=== PATIENT | male | born 1980 | race Caucasian/White ===

== ENCOUNTER 2019-02-21 11:00 | Outpatient (CLI) | payer BC ==
[~2019-02-21] VITALS: Ht 190.5 cm; Wt 115.2 kg
[~2019-02-21 11:00] MED LIST: ALPR.5T; FEXO180T; TMSL.4C
[2019-02-21] MEDS ORDERED: CETI10TA20 PO (15:08)
[2019-02-21] MEDS ORDERED: ALPR0.5T7 PO (15:08)
[2019-02-22] MEDS ORDERED: NITR-65 PO (13:11)
[2019-02-22] MEDS ORDERED: HYDR-3870 PO (13:11)
[2019-02-22] MEDS ORDERED: TAMS0.4C98 PO (13:11)
== END 2019-02-21 15:21 | disposition home or self-care (01) ==
LOC: PREOP 11:00
PROVIDERS: ATTEND Urology
DX: Z01.818 Encounter for other preprocedural examination (principal)

== ENCOUNTER 2019-02-22 07:50 | Day surgery (SDC) | payer BC ==
[2019-02-22] VITALS (11 sets, daily range): BP systolic 122–140; BP diastolic 83–100
[~2019-02-22] VITALS: Ht 190.5 cm; Wt 115.2 kg
[~2019-02-22 07:50] MED LIST changes: +ALPR0.5T7 PO; +CETI10TA20 PO
--- OUTSIDE RECORDS SUMMARY | 2019-02-22 07:52 | XMS REPORT | Clinical Summary ---
Author Author Admin, BEAN Organization [facility] Address Unknown Phone Unavailable Allergies, Adverse Reactions, Alerts Allergy Name Reaction Description Start Date Severity Status Provider Allergies Unknown Conditions or Problems Problem Name Problem Code Onset Date Status Entry Date Provider Comment Standard Description Annotate Erythrocytosis 289.0 Active Nany Urena MA Polycythemia, secondary Medication List Medication Instructions Start Date Stop Date Generic Name NDC Status Provider Patient Instruction Drug Treatment Unknown - unknown Diagnostic Results Date Name Value Unit Range Description Lab Report: CBC W/DIFF - Hematology leukocyte count, blood 8.2 10^3/MM^3 10*3/mm3 4.6-10.2 neutrophils as percent of blood leukocytes 39.7 % 42.2-75.2 monocytes as percent of blood leukocytes 9.5 % 1.7-9.3 lymphocytes as percent of blood leukocytes 36.9 % 20.5-51.1 erythrocyte (RBC) count 5.92 10^6/MM^3 10*6/mm3 4.50-6.50 hemoglobin, blood 16.5 g/dL 14.0-18.0 hematocrit, blood 51.1 % 40.0-54.0 mean corpuscular volume, RBC 86 fL 80-97 mean corpuscular hemoglobin, RBC 27.9 pg 27.0-31.2 mean corpuscular hemoglobin concentration, RBC 32.3 G/DL % 31.8- 35.4 red blood cell distribution width 11.6 % 11.6-14.8 platelet count 299 10^3/MM^3 10*3/mm3 142-424
--- OUTSIDE RECORDS SUMMARY | 2019-02-22 07:52 | XMS REPORT | Clinical Summary ---
Author Author Admin, [facility] Organization [facility] Address Unknown Phone Unavailable Allergies, Adverse Reactions, [...]
--- OUTSIDE RECORDS SUMMARY | 2019-02-22 07:52 | XMS REPORT | Clinical Summary ---
Author Author Admin, BEAN Organization [employer] [facility] Address Unknown Phone Unavailable Allergies, Adverse Reactions, [...]
--- OUTSIDE RECORDS SUMMARY | 2019-02-22 07:52 | XMS REPORT | Clinical Summary ---
Author Author Admin, BEAN Organization [facility] Address Unknown Phone Unavailable Allergies, Adverse [...]
--- OUTSIDE RECORDS SUMMARY | 2019-02-22 07:53 | XMS REPORT | Continuity of Care Document ---
Author Organization Unknown Address Unknown Allergies There is no data. Medications There is no data. Problems Date Dx Coded Attending Type Code Diagnosis Diagnosed By 01/17/2019 D75.1 Erythrocytosis Procedures There is no data. Results There is no data. Encounters ACCT No. Visit Date/Time Discharge Status Pt. Type Provider Facility Loc./Unit Complaint [id number] 02/03/2019 20:07:45 ACT Unknown
[2019-02-22] MEDS ORDERED: cefTRIAXone FOR IV USE 1,000 MG in WATER (STERILE) FOR INJECTION 10 ML IV ONE (08:15)
--- NOTE | 2019-02-22 08:20 | Progress Note-Pre Operative ---
Pre-Operative Progress Note H&P Reviewed The H&P was reviewed, patient examined and no changes noted. Date Seen by Provider: Feb 22, 2019 Time Seen by Provider: 08:19 Date H&P Reviewed: Feb 22, 2019 Time H&P Reviewed: 08:19 Pre-Operative Diagnosis: LT URETERAL STONE WILLIS BRYANT MD Feb 22, 2019 08:19
[2019-02-22] MEDS ORDERED: CATHETER FLUSH 10 ML SYR IV PRN (08:30)
--- NOTE | 2019-02-22 08:35 | Diagnostic Imaging Report ---
INDICATION: Left ureteral calculus. EXAMINATION: KUB at 8:17 AM. FINDINGS: There is a 5 mm stone projecting over the left proximal ureter. The bowel gas pattern is normal. IMPRESSION: 5 mm calculus in the left proximal ureter. Dictated by: Dictated on workstation # [id number]
[2019-02-22] MEDS: LACTATED RINGERS 1,000 ML IV PRN ×2 (08:55→11:30)
[2019-02-22] MEDS ORDERED: MIDAZOLAM 2 MG/2 ML (VERSED) VIAL ONE (10:39)
[2019-02-22] MEDS ORDERED: fentaNYL INJECTION 100 MCG/2 ML AMP ONE (10:39)
[2019-02-22] MEDS ORDERED: proPOfol 200 MG/20 ML (DIPRIVAN) VIAL IV ONE (11:13)
[2019-02-22] MEDS ORDERED: ONDANSETRON 4 MG/2 ML (SDV) Z0FRAN ONE (11:14)
[2019-02-22] MEDS ORDERED: KETOROLAC 30 MG/ML VIAL ONE (11:14)
[2019-02-22] MEDS ORDERED: FUROSEMIDE 40 MG/4 ML INJ (LASIX) ONE (11:14)
[2019-02-22] MEDS ORDERED: DEXAMETHASONE 10 MG/ML (DECADRON) 1 ML VIAL ONE (11:14)
--- NOTE | 2019-02-22 11:15 | Discharge Inst-Urology ---
Discharge Inst-Urology Discharge Medications New, Converted, or Re-newed RX: RX on Chart Patient Instructions/Follow Up Plan Please make appointment to been seen in office Tuesday 03/06. KUB prior to it KUB on way home Post ESWL instructions Increase oral fluids for 48 hours and then as needed. Diet and Activity as tolerated. If questions or concerns contact your physician Or seek help at emergency department. WILLIS BRYANT MD Feb 22, 2019 11:15
--- NOTE | 2019-02-22 11:17 | Progress Note-Post Operative ---
Post-Operative Progess Note Surgeon (s)/Roadway Technician (s) Surgeon WILLIS BRYANT MD Roadway Technician: NONE Pre-Operative Diagnosis LT PROXIMAL URETERAL STONE Post-Operative Diagnosis SAME Procedure & Operative Findings Date of Procedure 02/22/19 Procedure Performed/Findings LT ESWL Anesthesia Type GENERAL Estimated Blood Loss Estimated blood loss (mL): NONE Specimens/Packing Specimens Removed NONE Packing: NONE WILLIS BRYANT MD Feb 22, 2019 11:17
[2019-02-22] MEDS ORDERED: SEVOFLURANE (ULTANE) 15 ML INHAL SOLN ONE (11:40)
[2019-02-22] MEDS ORDERED: LIDOCAINE PF 2% 5 ML (XYLOCAINE) VIAL ONE (11:40)
[2019-02-22] MEDS ORDERED: NITR-65 PO (13:11)
[2019-02-22] MEDS ORDERED: HYDR-3870 PO (13:11)
[2019-02-22] MEDS ORDERED: TAMS0.4C98 PO (13:11)
--- NOTE | 2019-02-22 13:39 | Anesthesia-General Post-Op ---
General Patient Condition Mental Status/LOC: Same as Preop Cardiovascular: Satisfactory Nausea/Vomiting: Absent Respiratory: Satisfactory Pain: Controlled Complications: Absent Post Op Complications Complications None Follow Up Care/Instructions Patient Instructions None needed. Anesthesia/Patient Condition Patient Condition Patient is doing well, no complaints, stable vital signs, no apparent adverse anesthesia problems. No complications reported per nursing. ADE HARDEN CRNA Feb 22, 2019 13:39
--- NOTE | 2019-02-22 13:53 | NUR ---
HAS BEEN ALERT, NO COMPLAINTS OF PAIN OR NAUSEA, AND TAKING PO FLUIDS WELL THROUGHOUT RECOVERY. FAINT PINK CIRCULAR AREA LEFT MID TO LOWER ABD NOTED. VOIDING CLEAR, LIGHT PINK TO PINK TINGED URINE WITHOUT PROBLEM. URINE STRAINED WITH NO STONE PARTICLES OBTAINED. STATES HE IS READY FOR DISMISSAL.
--- NOTE | 2019-02-22 14:21 | Diagnostic Imaging Report ---
INDICATION: Nephrolithiasis. EXAMINATION: KUB at 1:22 PM. FINDINGS: No definite calculi are seen. A small calculus could be obscured by bowel gas. The pelvis is unremarkable. IMPRESSION: Negative abdomen. Dictated by: Dictated on workstation # [id number]
--- NOTE | 2019-02-22 15:48 | OPERATIVE REPORT ---
DATE OF SERVICE: 02/22/2019 PREOPERATIVE DIAGNOSIS: Left proximal ureteral stone. POSTOPERATIVE DIAGNOSIS: Left proximal ureteral stone. OPERATION PERFORMED: Left extracorporeal shock wave lithotripsy. SURGEON: Tobias Bryant MD ANESTHESIA: General. COMPLICATIONS. None. PROCEDURE IN DETAIL: Under satisfactory general anesthesia, the patient in supine position on the ESWL table, the left proximal ureteral stone was localized. Shocks were delivered at kV of 4, total of 3000 shocks completely fragmented the stone that was difficult to see. The patient received 40 mg of Lasix and 30 mg of Toradol IV at the end of the procedure. He tolerated the procedure and anesthesia well and was sent to recovery room in stable condition. Job ID: [id number] DocumentID: [id number] Dictated Date: 02/22/2019 11:25:30 Cow Rider Date: 02/22/2019 15:48:00 Dictated By: TOBIAS BRYANT MD
== END 2019-02-22 13:53 | disposition home or self-care (01) ==
LOC: SDC 07:50
PROVIDERS: ATTEND Urology
DX: N20.1 Calculus of ureter (principal); Z11.2 Encounter for screening for other bacterial diseases; F41.9 Anxiety disorder, unspecified; J30.2 Other seasonal allergic rhinitis; Z79.899 Other long term (current) drug therapy; E66.9 Obesity, unspecified; Z68.31 Body mass index [BMI] 31.0-31.9, adult
CPT/HCPCS: 74018; 87081

== ENCOUNTER 2019-03-06 16:00 | Outpatient (RCR) | payer BC ==
[2019-04-10] MEDS ORDERED: CEPH500T PO (09:04)
== END 2019-06-04 | disposition home or self-care (01) ==
LOC: LAB 16:00 → EDSTATUS 05-17 13:09
PROVIDERS: ATTEND Urology
DX: N20.0 Calculus of kidney (principal)
CPT/HCPCS: 88300

== ENCOUNTER → 2019-03-06 | Outpatient (CLI) | payer BC ==
[~2019-03-06] MED LIST changes: +HYDR-3870 PO; +NITR-65 PO; +TAMS0.4C98 PO
--- NOTE | 2019-03-06 15:33 | Diagnostic Imaging Report ---
INDICATION: Left ureteral calculus. Status post ESWL. COMPARISON: 02/22/2019. FINDINGS: Two supine radiographic views of the abdomen were obtained and again demonstrate 5 mm calculus projecting over the left psoas muscle. There may be minimal inferior migration since the previous exam dated 02/22/2019. No new extraosseous calcifications or radiopaque foreign bodies are seen. Small bowel loops are nondistended. Bony structures show no gross acute abnormalities. IMPRESSION: 1. Redemonstration of calculus within the left ureter as described above. Dictated by: Dictated on workstation # [id number]
== END ==
LOC: RAD 14:59
PROVIDERS: ATTEND Urology
DX: N20.1 Calculus of ureter (principal)
CPT/HCPCS: 74018

== ENCOUNTER 2019-04-10 06:32 | Emergency (ER) | payer BC ==
[~2019-04-10] VITALS: Ht 190.5 cm; Wt 131.1 kg
--- OUTSIDE RECORDS SUMMARY | 2019-04-10 06:38 | XMS REPORT | Continuity of Care Document ---
Author Organization Unknown Address Unknown Allergies Active Description Code Type Severity Reaction Onset Reported/Identified Relationship to Patient Clinical Status Yes iodine [id number] Drug Allergy Mild N/A 12/24/2009 Yes latex [id number] Drug Allergy Mild N/A 12/24/2009 Medications There is no data. Problems Date Dx Coded Attending Type Code Diagnosis Diagnosed By 01/17/2019 D75.1 Erythrocytosis 02/21/2019 WILLIS BRYANT MD Ot Z01.818 ENCOUNTER FOR OTHER PREPROCEDURAL EXAMIN 02/24/2019 WILLIS BRYANT MD Ot E66.9 OBESITY, UNSPECIFIED 02/24/2019 WILLIS BRYANT MD, Ot F41.9 ANXIETY DISORDER, UNSPECIFIED 02/24/2019 WILLIS BRYANT MD Ot J30.2 OTHER SEASONAL ALLERGIC RHINITIS 02/24/2019 WILLIS BRYANT MD, Ot N20.1 CALCULUS OF URETER 02/24/2019 WILLIS BRYANT MD, Ot Z11.2 ENCOUNTER FOR SCREENING FOR OTHER BACTER 02/24/2019 WILLIS BRYANT MD Ot Z68.31 BODY MASS INDEX (BMI) 31.0-31.9, ADULT 02/24/2019 WILLIS BRYANT MD, Ot Z79.899 OTHER [place] (CURRENT) DRUG THERAPY 03/09/2019 WILLIS BRYANT MD Ot N20.0 CALCULUS OF KIDNEY 03/30/2019 WILLIS BRYANT MD, Ot N20.0 CALCULUS OF KIDNEY Procedures There is no data. Results Test Result Range Methicillin resistant Staphylococcus aureus (MRSA) screening culture - 02/22/19 08:30 Methicillin resistant Staphylococcus aureus (MRSA) screening culture NEG NRG Measurement of weight of kidney stone - 03/06/19 15:00 Measurement of weight of kidney stone 26 mg NRG Kidney stone composition determination See Note NRG Count of number of calculi Numerous NRG Size of stone 1 to 4 mm NRG Encounters ACCT No. Visit Date/Time Discharge Status Pt. Type Provider Facility Loc./Unit Complaint [id number] 04/07/2019 20:08:46 ACT Unknown [id number] 03/06/2019 16:00:00 03/06/2019 23:59:59 CLS Outpatient WILLIS BRYANT MD [facility] LAB STONE ANALYSIS,STONE RISK PROFILE [id number] 02/22/2019 07:50:00 02/22/2019 13:53:00 DIS Outpatient WILLIS BRYANT MD [facility] SDC LEFT URETERAL STONE [id number] 02/21/2019 11:00:00 02/21/2019 15:21:00 DIS Outpatient WILLIS BRYANT MD [facility] PREOP LEFT ESWL [id number] 04/10/2019 10:45:00 PEN Preadmit WILLIS BRYANT MD [facility] RAD FS RT RENAL STONES
[2019-04-10] MEDS ORDERED: NS IV 1000 ML 1,000 ML IV ONE (07:10)
[2019-04-10] MEDS ORDERED: KETOROLAC 30 MG/ML VIAL IVP STA (07:10)
[2019-04-10 07:12] LABS: CLARITY,URINE CLEAR; COLOR,URINE YELLOW; PH,URINE 5.5 (5-9)
[2019-04-10 07:13] LABS: BILIRUBIN,URINE NEGATIVE (NEGATIVE); GLUCOSE, URINE (UA) NEGATIVE (NEGATIVE); KETONES,URINE NEGATIVE (NEGATIVE); NITRITE,URINE NEGATIVE (NEGATIVE); PROTEIN,URINE NEGATIVE (NEGATIVE)
[2019-04-10 07:14] LABS: LEUKOCYTE ESTERASE ,URINE NEGATIVE (NEGATIVE); UROBILINOGEN,URINE 0.2 MG/DL (NORMAL)
[2019-04-10 07:15] LABS: BACTERIA,URINE NEGATIVE /HPF; SQUAMOUS EPITHELIAL CELL,UR 0-2 /HPF
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
[2019-04-10 07:48] LABS: HEMOGLOBIN 16.3 G/DL (13.3-17.7); MEAN CORPUSCULAR HEMOGLOBIN 30 PG (25-34); WHITE BLOOD COUNT 6.7 10^3/uL (4.3-11.0)
[2019-04-10 07:49] LABS: BASOPHILS # (AUTO) 0.1 10^3/uL (0.0-0.1); BASOPHILS % (AUTO) 1 % (0-10); EOSINOPHILS # (AUTO) 0.8 10^3/uL (0.0-0.3); EOSINOPHILS % (AUTO) 12 % (0-10); HEMATOCRIT 47 % (40-54); LYMPHOCYTES # (AUTO) 2.1 X 10^3 (1.0-4.0); LYMPHOCYTES % (AUTO) 31 % (12-44); MEAN CORPUSCULAR HGB CONC 35 G/DL (32-36); MEAN CORPUSCULAR VOLUME 85 FL (80-99); MEAN PLATELET VOLUME 9.9 FL (7.4-10.4); MONOCYTES # (AUTO) 0.6 X 10^3 (0.0-1.0); MONOCYTES % (AUTO) 9 % (0-12); NEUTROPHILS # (AUTO) 3.1 X 10^3 (1.8-7.8); NEUTROPHILS % (AUTO) 47 % (42-75); PLATELET COUNT 265 10^3/uL (130-400); RED CELL DISTRIBUTION WIDTH 12.8 % (10.0-14.5)
[2019-04-10 08:01] LABS: ALANINE AMINOTRANSFERASE 32 U/L (0-55); ALKALINE PHOSPHATASE 66 U/L (40-136); BILIRUBIN,TOTAL 0.8 MG/DL (0.1-1.0); BUN/CREATININE RATIO 14; CALCIUM 9.5 MG/DL (8.5-10.1); CARBON DIOXIDE 27 MMOL/L (21-32); CHLORIDE 101 MMOL/L (98-107); GFR ESTIMATED > 60; GLUCOSE 112 MG/DL (70-105); POTASSIUM 4.2 MMOL/L (3.6-5.0); SODIUM 139 MMOL/L (135-145); TOTAL PROTEIN 7.2 GM/DL (6.4-8.2)
[2019-04-10 08:02] LABS: ALBUMIN 4.5 GM/DL (3.2-4.5)
--- NOTE | 2019-04-10 08:27 | Diagnostic Imaging Report ---
PROCEDURE: CT abdomen and pelvis without contrast. TECHNIQUE: Multiple contiguous axial images were obtained through the abdomen and pelvis without the use of intravenous contrast. Auto Exposure Controls were utilized during the CT exam to meet ALARA standards for radiation dose reduction. INDICATION: Left lower quadrant pain. There are no prior studies available for comparison. FINDINGS: The images through the low pelvis do show that there is a 5.3 mm calculus in the distal left ureter approximately 3 cm from the ureterovesical junction (image 151 of 189). The ureter proximal to the calculus and the left renal pelvis are slightly dilated and this appearance would be consistent with partial obstruction of the left collecting system. There are also one or two minute nonobstructive calculi within both kidneys. There is no evidence for obstruction of the right collecting system. The urinary bladder is not well distended and consequently difficult to assess. There is no obvious bladder abnormality evident. The prostate gland is not enlarged. The appendix was visualized and is not abnormally thickened. The liver, spleen, pancreas, gallbladder, adrenals, aorta and inferior vena cava show no sign of an acute abnormality. The stomach is not well distended and consequently difficult to assess. The lung bases are clear. The bone windows show no sign of a fracture or of a destructive lesion. IMPRESSION: 1. There is partial obstruction of the left collecting system due to a 5.3 mm calculus in the distal left ureter. There are also minute nonobstructive calculi within both kidneys. 2. There is no acute abnormality of the abdomen or pelvis noted otherwise. Dictated by: Dictated on workstation # [id number]
[2019-04-10] MEDS ORDERED: CEPH500T PO (09:04)
[2019-04-10 09:14] VITALS: BP 140/100
--- NOTE | 2019-04-10 09:14 | NUR ---
PT DISCHARGED TO HOME WITH APPT MADE BY RN TO SEE DR BRYANT AT [facility] OFFICE AT 1600 TOMORROW. PT VERBALIZES UNDERSTANDING OF INSTRUCTIONS REVIEWED.
--- NOTE | 2019-04-10 09:43 | Diagnostic Imaging Report ---
Supine abdomen at 8:45 a.m. INDICATION: Left lower quadrant pain. FINDINGS: The CT abdomen/pelvis exam performed earlier today noted obstruction of the left collecting system due to a 5.3 mm calculus near the ureterovesical junction. That calcific density is again identified on this study. The CT exam also noted a few minute nonobstructive calculi involving both kidneys. Those calcifications are not well appreciated. No other abnormality is identified. IMPRESSION: 1. The 5 mm obstructive calculus in the distal left ureter seen on the previous CT abdomen/pelvis exam is again visualized on this study. The calculus seems unchanged in position. 2. There is no acute abnormality identified otherwise. Dictated by: Dictated on workstation # [id number]
== END 2019-04-10 09:14 | disposition home or self-care (01) ==
LOC: EDUNIT# 06:32 → ER FS 06:35
DX: N20.1 Calculus of ureter (principal); F41.9 Anxiety disorder, unspecified; Z86.14 Personal history of Methicillin resistant Staphylococcus aureus infection; Z91.041 Radiographic dye allergy status; Z91.040 Latex allergy status; Z87.442 Personal history of urinary calculi; Z98.890 Other specified postprocedural states; Z90.89 Acquired absence of other organs; Z87.820 Personal history of traumatic brain injury
CPT/HCPCS: 36415; 74018; 74176; 80053; 81000; 85025; 96361; 96374

== ENCOUNTER → 2019-04-17 | Outpatient (CLI) | payer BC ==
[~2019-04-17] MED LIST changes: +CEPH500T PO
--- NOTE | 2019-04-17 14:38 | Diagnostic Imaging Report ---
INDICATION: Right renal stone. TIME OF EXAM: 1:21 p.m. COMPARISON: Correlation is made with prior study from 04/10/2019. FINDINGS: Bowel gas pattern is unremarkable. No definite renal calculi are seen. Calcific density in the medial aspect of the left hemipelvis is unchanged and may represent distal ureteric calculus. This is slightly more caudal when compared with prior exam. No other suspicious calcifications are seen. IMPRESSION: There has been some caudal migration of the slightly elongated calculus in the distribution of the distal left ureter when compared with examination one week earlier. Dictated by: Dictated on workstation # [id number]
== END ==
LOC: RAD 13:05
PROVIDERS: ATTEND Urology
DX: N20.0 Calculus of kidney (principal)
CPT/HCPCS: 74018

== ENCOUNTER 2019-04-18 05:36 | Outpatient (CLI) | payer BC ==
[~2019-04-18] VITALS: Ht 190.5 cm; Wt 131.1 kg
== END 2019-04-18 11:33 | disposition home or self-care (01) ==
LOC: PREOP 05:36
PROVIDERS: ATTEND Urology
DX: Z01.818 Encounter for other preprocedural examination (principal)

== ENCOUNTER 2019-04-19 06:30 | Day surgery (SDC) | payer BC ==
[2019-04-19] VITALS (9 sets, daily range): BP systolic 104–143; BP diastolic 52–101
[~2019-04-19] VITALS: Ht 190.5 cm; Wt 131.1 kg
--- OUTSIDE RECORDS SUMMARY | 2019-04-19 06:34 | XMS REPORT | Continuity of Care Document ---
Author Organization Unknown Address Unknown Allergies Active Description Code Type Severity Reaction Onset Reported/Identified Relationship to Patient Clinical Status Yes iodine [id number] Drug Allergy Mild N/A 12/24/2009 Yes latex [id number] Drug Allergy Mild N/A 12/24/2009 Medications There is no data. Problems Date Dx Coded Attending Type Code Diagnosis Diagnosed By 01/17/2019 D75.1 Erythrocytosis 02/21/2019 WILLIS BRYANT MD Ot Z01.818 ENCOUNTER FOR OTHER PREPROCEDURAL EXAMIN 02/22/2019 WILLIS BRYANT MD Ot E66.9 OBESITY, UNSPECIFIED 02/22/2019 WILLIS BRYANT MD Ot F41.9 ANXIETY DISORDER, UNSPECIFIED 02/22/2019 WILLIS BRYANT MD Ot J30.2 OTHER SEASONAL ALLERGIC RHINITIS 02/22/2019 WILLIS BRYANT MD Ot N20.1 CALCULUS OF URETER 02/22/2019 WILLIS BRYANT MD Ot Z11.2 ENCOUNTER FOR SCREENING FOR OTHER BACTER 02/22/2019 WILLIS BRYANT MD Ot Z68.31 BODY MASS INDEX (BMI) 31.0-31.9, ADULT 02/22/2019 WILLIS BRYANT MD Ot Z79.899 OTHER CCIE (CURRENT) DRUG THERAPY 02/24/2019 WILLIS BRYANT MD Ot E66.9 OBESITY, UNSPECIFIED 02/24/2019 WILLIS BRYANT MD Ot F41.9 ANXIETY DISORDER, UNSPECIFIED 02/24/2019 WILLIS BRYANT MD Ot J30.2 OTHER SEASONAL ALLERGIC RHINITIS 02/24/2019 WILLIS BRYANT MD Ot N20.1 CALCULUS OF URETER 02/24/2019 WILLIS BRYANT MD Ot Z11.2 ENCOUNTER FOR SCREENING FOR OTHER BACTER 02/24/2019 WILLIS BRYANT MD Ot Z68.31 BODY MASS INDEX (BMI) 31.0-31.9, ADULT 02/24/2019 WILLIS BRYANT MD Ot Z79.899 OTHER CCIE (CURRENT) DRUG THERAPY 03/09/2019 WILLIS BRYANT MD Ot N20.0 CALCULUS OF KIDNEY 03/30/2019 WILLIS BRYANT MD Ot N20.0 CALCULUS OF KIDNEY 04/10/2019 CLARISA DOUGHERTY MD, Ot F41.9 ANXIETY DISORDER, UNSPECIFIED 04/10/2019 CLARISA DOUGHERTY MD, Ot N20.1 CALCULUS OF URETER 04/10/2019 CLARISA DOUGHERTY MD, Ot R10.32 LEFT LOWER QUADRANT PAIN 04/10/2019 CLARISA DOUGHERTY MD, Ot Z86.14 PERSONAL HISTORY OF METHICILLIN RESIS ST 04/10/2019 CLARISA DOUGHERTY MD, Ot Z87.442 PERSONAL HISTORY OF URINARY CALCULI 04/10/2019 CLARISA DOUGHERTY MD Ot Z87.820 PERSONAL HISTORY OF TRAUMATIC BRAIN INJU 04/10/2019 CLARSIA DOUGHERTY MD Ot Z90.89 ACQUIRED ABSENCE OF OTHER ORGANS 04/10/2019 CLARISA DOUGHERTY MD Ot Z91.040 LATEX ALLERGY STATUS 04/10/2019 CLARISA DOUGHERTY MD, Ot Z91.041 RADIOGRAPHIC DYE ALLERGY STATUS 04/10/2019 CLARISA DOUGHERTY MD Ot Z98.890 OTHER SPECIFIED POSTPROCEDURAL STATES 04/11/2019 Ot N20.1 CALCULUS OF URETER 04/11/2019 WILLIS BRYANT MD Ot N20.0 CALCULUS OF KIDNEY 04/13/2019 CLARISA DOUGHERTY MD, Ot F41.9 ANXIETY DISORDER, UNSPECIFIED 04/13/2019 CLARISA DOUGHERTY MD, Ot N20.1 CALCULUS OF URETER 04/13/2019 CLARISA DOUGHERTY MD Ot R10.32 LEFT LOWER QUADRANT PAIN 04/13/2019 CLARISA DOUGHERTY MD Ot Z86.14 PERSONAL HISTORY OF METHICILLIN RESIS ST 04/13/2019 CLARISA DOUGHERTY MD Ot Z87.442 PERSONAL HISTORY OF URINARY CALCULI 04/13/2019 CLARISA DOUGHERTY MD Ot Z87.820 PERSONAL HISTORY OF TRAUMATIC BRAIN INJU 04/13/2019 CLARISA DOUGHERTY MD Ot Z90.89 ACQUIRED ABSENCE OF OTHER ORGANS 04/13/2019 CLARISA DOUGHERTY MD Ot Z91.040 LATEX ALLERGY STATUS 04/13/2019 CLARISA DOUGHERTY MD Ot Z91.041 RADIOGRAPHIC DYE ALLERGY STATUS 04/13/2019 CLARISA DOUGHERTY MD Ot Z98.890 OTHER SPECIFIED POSTPROCEDURAL STATES 04/17/2019 Ot N20.1 CALCULUS OF URETER 04/17/2019 WILLIS BRYANT MD Ot N20.0 CALCULUS OF KIDNEY Procedures There [...] of stone 1 to 4 mm NRG CD3+CD4+ (T4 helper) cells/100 cells in blood - 04/03/19 15:00 Timed urine calcium measurement (mass/volume) 392 % < 250 Urine oxalate detection 46 < 45 Urine uric acid measurement (mass/volume) 724 % < 700 Urine citrate measurement (mass/volume) 774 % > 320 Urine pH measurement 6.1 5.5-7.0 24 hour urine specimen volume measurement 2.01 % > 2.00 Sodium urate/total calculus mass ratio by infrared spectroscopy 163 % < 200 Sulfites [presence] in urine by test strip 17 < 30 Urine phosphate measurement (mass/volume) 1029 % < 1100 Urine magnesium measurement (mass/volume) 140 % > 60 Urine calcium oxalate measurement 3.20 < 2.00 Urine calcium phosphate crystals detection by computer assisted method 2.70 < 2.00 24 hour urine sodium urate (saturation fraction) 2.17 < 2.00 Triple phosphate crystals detection in urine sediment by light microscopy 0.61 < 75.00 24 hour urine uric acid (saturation fraction) 1.24 < 2.00 Urine ammonium measurement 27 % 14-62 Urine potassium measurement 32 % 19-135 24 hour urine creatinine measurement (mass/time) 1877 % 800- 2000 Clinical lockstitch lining setter review of results See Below NRG Complete urinalysis with reflex to culture - 04/10/19 06:08 Urine color determination YELLOW NRG Urine clarity determination CLEAR NRG Urine pH measurement by test strip 5.5 5-9 Specific gravity of urine by test strip 1.020 1.016-1.022 Urine protein assay by test strip, semi-quantitative NEGATIVE NEGATIVE Urine glucose detection by automated test strip NEGATIVE NEGATIVE Erythrocytes detection in urine sediment by light microscopy 2+ NEGATIVE Urine ketones detection by automated test strip NEGATIVE NEGATIVE Urine nitrite detection by test strip NEGATIVE NEGATIVE Urine total bilirubin detection by test strip NEGATIVE NEGATIVE Urine urobilinogen measurement by automated test strip (mass/volume) 0.2 mg/dL NORMAL Urine leukocyte esterase detection by dipstick NEGATIVE NEGATIVE Automated urine sediment erythrocyte count by microscopy (number/high power field) [HPF] NRG Automated urine sediment leukocyte count by microscopy (number/high power field) NONE NRG Bacteria detection in urine sediment by light microscopy NEGATIVE NRG Squamous epithelial cells detection in urine sediment by light microscopy 0-2 NRG Crystals detection in urine sediment by light microscopy NONE NRG Casts detection in urine sediment by light microscopy NONE NRG Mucus detection in urine sediment by light microscopy NONE NRG Complete urinalysis with reflex to culture NO NRG Complete blood count (CBC) with automated white blood cell (WBC) differential - 04/10/19 07:15 Blood leukocytes automated count (number/volume) 6.7 10*3/uL 4.3-11.0 Blood erythrocytes automated count (number/volume) 5.49 10*6/uL 4.35-5.85 Venous blood hemoglobin measurement (mass/volume) 16.3 g/dL 13.3-17.7 Blood hematocrit (volume fraction) 47 % 40-54 Automated erythrocyte mean corpuscular volume 85 [foz_us] 80-99 Automated erythrocyte mean corpuscular hemoglobin (mass per erythrocyte) 30 pg 25-34 Automated erythrocyte mean corpuscular hemoglobin concentration measurement (mass/volume) 35 g/dL 32-36 Automated erythrocyte distribution width ratio 12.8 % 10.0- 14.5 Automated blood platelet count (count/volume) 265 10*3/uL 130-400 Automated blood platelet mean volume measurement 9.9 [foz_us] 7.4-10.4 Automated blood neutrophils/100 leukocytes 47 % 42-75 Automated blood lymphocytes/100 leukocytes 31 % 12-44 Blood monocytes/100 leukocytes 9 % 0-12 Automated blood eosinophils/100 leukocytes 12 % 0-10 Automated blood basophils/100 leukocytes 1 % 0-10 Blood neutrophils automated count (number/volume) 3.1 10*3 1.8-7.8 Blood lymphocytes automated count (number/volume) 2.1 10*3 1.0-4.0 Blood monocytes automated count (number/volume) 0.6 10*3 0.0- 1.0 Automated eosinophil count 0.8 10*3/uL 0.0-0.3 Automated blood basophil count (count/volume) 0.1 10*3/uL 0.0-0.1 Comprehensive metabolic panel - 04/10/19 07:15 Serum or plasma sodium measurement (moles/volume) 139 mmol/L 135-145 Serum or plasma potassium measurement (moles/volume) 4.2 mmol/L 3.6-5.0 Serum or plasma chloride measurement (moles/volume) 101 mmol/L 98-107 Carbon dioxide 27 mmol/L 21-32 Serum or plasma anion gap determination (moles/volume) 11 mmol/L 5-14 Serum or plasma urea nitrogen measurement (mass/volume) 14 mg/dL 7-18 Serum or plasma creatinine measurement (mass/volume) 1.00 mg/dL 0.60-1.30 Serum or plasma urea nitrogen/creatinine mass ratio 14 NRG Serum or plasma creatinine measurement with calculation of estimated glomerular filtration rate > NRG Serum or plasma glucose measurement (mass/volume) 112 mg/dL 70-105 Serum or plasma calcium measurement (mass/volume) 9.5 mg/dL 8.5-10.1 Serum or plasma total bilirubin measurement (mass/volume) 0.8 mg/dL 0.1-1.0 Serum or plasma alkaline phosphatase measurement (enzymatic activity/volume) 66 U/L 40-136 Serum or plasma aspartate aminotransferase measurement (enzymatic activity/volume) 24 U/L 5-34 Serum or plasma alanine aminotransferase measurement (enzymatic activity/volume) 32 U/L 0-55 Serum or plasma protein measurement (mass/volume) 7.2 g/dL 6.4-8.2 Serum or plasma albumin measurement (mass/volume) 4.5 g/dL 3.2-4.5 CALCIUM CORRECTED 9.1 mg/dL 8.5-10.1 Encounters ACCT No. Visit Date/Time Discharge Status Pt. Type Provider Facility Loc./Unit Complaint [id number] 04/07/2019 20:08:46 ACT Unknown [id number] 04/10/2019 10:45:00 04/10/2019 23:59:59 CLS Preadmit WILLIS BRYANT MD [facility] RAD FS RT RENAL STONES [id number] 04/10/2019 06:35:00 04/10/2019 09:14:00 DIS Emergency CLARISA DOUGHERTY MD [facility] ER FS URINARY PROBLEMS [id number] 03/06/2019 16:00:00 03/06/2019 23:59:59 CLS Outpatient WILLIS BRYANT MD [facility] LAB STONE ANALYSIS,STONE RISK PROFILE [id number] 02/22/2019 07:50:00 02/22/2019 13:53:00 DIS Outpatient WILLIS BRYANT MD [facility] LEFT URETERAL STONE [id number] 02/21/2019 11:00:00 02/21/2019 15:21:00 DIS Outpatient WILLIS BRYANT MD [facility] PREOP LEFT ESWL [id number] 04/19/2019 10:15:00 PEN Preadmit WILLIS BRYANT MD [facility] LEFT DISTAL URETERAL STONE [id number] 04/17/2019 13:05:00 ACT Outpatient WILLIS BRYANT MD [facility] RAD RENAL STONES [id number] 03/06/2019 14:59:00 Document Registration
[2019-04-19] MEDS ORDERED: LACTATED RINGERS 1,000 ML IV PRN (06:35)
[2019-04-19] MEDS ORDERED: proPOfol 200 MG/20 ML (DIPRIVAN) VIAL IV ONE ×2 (06:39→08:02)
[2019-04-19] MEDS ORDERED: ONDANSETRON 4 MG/2 ML (SDV) Z0FRAN ONE (06:39)
[2019-04-19] MEDS ORDERED: DEXAMETHASONE 10 MG/ML (DECADRON) 1 ML VIAL ONE (06:39)
[2019-04-19] MEDS ORDERED: LIDOCAINE PF 2% 5 ML (XYLOCAINE) VIAL ONE (06:39)
[2019-04-19] MEDS ORDERED: fentaNYL INJECTION 100 MCG/2 ML AMP ONE (06:40)
[2019-04-19] MEDS ORDERED: MIDAZOLAM 2 MG/2 ML (VERSED) VIAL ONE (06:40)
[2019-04-19] MEDS ORDERED: cefTRIAXone FOR IV USE 1,000 MG in WATER (STERILE) FOR INJECTION 10 ML IV ONE (06:45)
--- NOTE | 2019-04-19 07:04 | Progress Note-Pre Operative ---
Pre-Operative Progress Note H&P Reviewed The H&P was reviewed, patient examined and no changes noted. Date Seen by Provider: Apr 19, 2019 Time Seen by Provider: 07:03 Date H&P Reviewed: Apr 19, 2019 Time H&P Reviewed: 07:03 Pre-Operative Diagnosis: LT DISTAL URETERAL STONE WILLIS BRYANT MD Apr 19, 2019 07:04
--- NOTE | 2019-04-19 07:05 | Progress Note-Post Operative ---
Post-Operative Progess Note Surgeon (s)/Color Matcher (s) Surgeon WILLIS BRYANT MD Color Matcher: NONE Pre-Operative Diagnosis LT DISTAL URETERAL STONE Post-Operative Diagnosis SAME Procedure & Operative Findings Date of Procedure 04/19/19 Procedure Performed/Findings LT URETEROSCOPY WITH STONE BASKET Anesthesia Type GENERAL Estimated Blood Loss Estimated blood loss (mL): NONE Specimens/Packing Specimens Removed LT URETERAL STONE Packing: NONE WILLIS BRYANT MD Apr 19, 2019 07:05
--- NOTE | 2019-04-19 07:07 | Discharge Inst-Urology ---
Discharge Inst-Urology Discharge Medications New, Converted, or Re-newed RX: RX on Chart Patient Instructions/Follow Up Plan Please make appointment to been seen in office in 3 weeks. Lab to provide stone risk profile kit with instructions for patient to do as OP Increase oral fluids for 48 hours and then as needed. Diet and Activity as tolerated. If questions or concerns contact your physician Or seek help at emergency department. WILLIS BRYANT MD Apr 19, 2019 07:07
[2019-04-19] MEDS ORDERED: KETOROLAC 30 MG/ML VIAL ONE (08:02)
[2019-04-19] MEDS ORDERED: FUROSEMIDE 40 MG/4 ML INJ (LASIX) ONE (08:02)
[2019-04-19] MEDS ORDERED: SEVOFLURANE (ULTANE) 15 ML INHAL SOLN ONE (08:07)
--- NOTE | 2019-04-19 08:27 | Diagnostic Imaging Report ---
INDICATION: Preop for left ureteral stone. Time of exam: 7:13 AM Correlation is made with prior exam from 04/17/2019. Calcific density in the medial left para midline pelvis is again noted similar to prior exam. No other definite radiopaque urinary tract calculi are seen. Bowel gas pattern is unremarkable. IMPRESSION: Distal left ureteric calculus, similar to examination 2 days earlier. Dictated by: Dictated on workstation # [id number]
[2019-04-19] MEDS ORDERED: ONDANSETRON 4 MG/2 ML (SDV) Z0FRAN IVP PRN (08:30)
[2019-04-19] MEDS ORDERED: morphine INJ 10 MG/ML 1ML (SYR OR VIAL) IVP ONE (08:30)
[2019-04-19] MEDS ORDERED: PHENAZOPYRIDINE 100 MG (PYRIDIUM) TABLET ONE (09:00)
--- NOTE | 2019-04-19 09:10 | NUR ---
PYRIDIUM 200 MG PO GIVEN FOR BLADDER PAIN/BURNING THAT THE PATIENT RATES A 6 OUT OF 10.
--- NOTE | 2019-04-19 12:50 | OPERATIVE REPORT ---
DATE OF SERVICE: 04/19/2019 PREOPERATIVE DIAGNOSIS: Left distal ureteral stone. POSTOPERATIVE DIAGNOSIS: Left distal ureteral stone. OPERATION PERFORMED: Left ureteroscopy with stone basket. SURGEON: Tobias Bryant MD. ANESTHESIA: General. COMPLICATIONS: None. DESCRIPTION OF PROCEDURE: Under satisfactory general anesthesia with the patient in lithotomy position, genitalia were prepped and draped in the usual sterile fashion. A 23-Ugandan cystoscope was introduced under direct vision. Anterior urethra was normal. The prostate was nonobstructing and the bladder neck was opened. Using the foroblique lens, I attempted to pass a ureteral catheter, but the stone was embedded in the intramural portion not allowing me to do any dilatation, so I removed the cystoscope and inserted the 6.9-Ugandan semirigid ureteroscope, went into the left ureteral orifice and intramural portion, visualized the stone. During the process, the stone was disimpacted, so I did not want to lose it, decided to do basket instead of lithotripsy, passed a 3-Ugandan [place] basket beyond the stone, engaged it under direct vision and extracted it completely, went back with the ureteroscope to confirm the integrity of the ureter and no further stones proximally, removed the ureteroscope, reinserted the cystoscope into the bladder. The patient tolerated the procedure and anesthesia well and was sent to recovery room in stable condition. Job ID: [id number] DocumentID: [id number] Dictated Date: 04/19/2019 08:18:01 Police Magistrate Date: 04/19/2019 12:49:23 Dictated By: TOBIAS BRYANT MD
--- NOTE | 2019-04-19 12:52 | Anesthesia-General Post-Op ---
General Patient Condition Mental Status/LOC: Same as Preop Cardiovascular: Satisfactory Nausea/Vomiting: Absent Respiratory: Satisfactory Pain: Controlled Complications: Absent Post Op Complications Complications None Follow Up Care/Instructions Patient Instructions None needed. Anesthesia/Patient Condition Patient Condition Patient is doing well, no complaints, stable vital signs, no apparent adverse anesthesia problems. No complications reported per nursing. OSMEL CRUZ CRNA Apr 19, 2019 12:52
[2019-04-19] MEDS ORDERED: PHENAZOPYRIDINE 100 MG (PYRIDIUM) TABLET PO ONE (14:15)
== END 2019-04-19 10:15 | disposition home or self-care (01) ==
LOC: SDC 06:30
PROVIDERS: ATTEND Urology
DX: N20.1 Calculus of ureter (principal); Z11.2 Encounter for screening for other bacterial diseases; F41.9 Anxiety disorder, unspecified; J30.2 Other seasonal allergic rhinitis; E66.9 Obesity, unspecified; Z79.899 Other long term (current) drug therapy; Z68.36 Body mass index [BMI] 36.0-36.9, adult
CPT/HCPCS: 74018; 87081

== ENCOUNTER 2019-04-20 15:30 | Emergency (ER) | payer BC ==
[~2019-04-20] VITALS: Ht 190.5 cm; Wt 127.0 kg
[2019-04-20] MEDS ORDERED: ANTACID SUSP 30 ML UDC (MYLANTA) PO ONE (15:45)
[2019-04-20] MEDS ORDERED: LIDOCAINE 2% VISCOUS 15 ML UDC PO ONE (15:45)
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
[2019-04-20 15:48] LABS: BASOPHILS % (AUTO) 0 % (0-10); EOSINOPHILS # (AUTO) 0.1 10^3/uL (0.0-0.3); EOSINOPHILS % (AUTO) 0 % (0-10); HEMATOCRIT 47 % (40-54); HEMOGLOBIN 16.3 G/DL (13.3-17.7); LYMPHOCYTES # (AUTO) 1.9 X 10^3 (1.0-4.0); LYMPHOCYTES % (AUTO) 10 % (12-44); MEAN CORPUSCULAR HEMOGLOBIN 29 PG (25-34); MEAN CORPUSCULAR HGB CONC 35 G/DL (32-36); MEAN CORPUSCULAR VOLUME 84 FL (80-99); MEAN PLATELET VOLUME 9.6 FL (7.4-10.4); MONOCYTES # (AUTO) 1.1 X 10^3 (0.0-1.0); MONOCYTES % (AUTO) 6 % (0-12); NEUTROPHILS # (AUTO) 15.4 X 10^3 (1.8-7.8); NEUTROPHILS % (AUTO) 83 % (42-75); PLATELET COUNT 304 10^3/uL (130-400); RED CELL DISTRIBUTION WIDTH 14.1 % (10.0-14.5); WHITE BLOOD COUNT 18.5 10^3/uL (4.3-11.0)
[2019-04-20 16:02] LABS: BAND NEUTROPHILS 0 %; BASOPHILS % (MANUAL) 0 %; EOSINOPHILS % (MANUAL) 1 %; LYMPHOCYTES % (MANUAL) 10 %; MONOCYTES % (MANUAL) 2 %; NEUTROPHILS % (MANUAL) 81 %; RBC MORPH NORMAL; REACTIVE LYMPHOCYTES 6 %
[2019-04-20 16:11] LABS: ALANINE AMINOTRANSFERASE 34 U/L (0-55); ALBUMIN 4.7 GM/DL (3.2-4.5); ALKALINE PHOSPHATASE 68 U/L (40-136); BILIRUBIN,TOTAL 0.5 MG/DL (0.1-1.0); BUN/CREATININE RATIO 13; CARBON DIOXIDE 27 MMOL/L (21-32); CHLORIDE 104 MMOL/L (98-107); CREATININE SERUM 1.17 MG/DL (0.60-1.30); GFR ESTIMATED > 60; GLUCOSE 117 MG/DL (70-105); LIPASE 17 U/L (8-78); POTASSIUM 3.6 MMOL/L (3.6-5.0); SODIUM 138 MMOL/L (135-145); TOTAL PROTEIN 7.5 GM/DL (6.4-8.2)
--- NOTE | 2019-04-20 16:54 | Diagnostic Imaging Report ---
PROCEDURE: CT urinary tract, rule out kidney stone. TECHNIQUE: Multiple contiguous axial images were obtained through the abdomen and pelvis without the use of intravenous contrast. Auto Exposure Controls were utilized during the CT exam to meet ALARA standards for radiation dose reduction. INDICATION: Indigestion, pain, kidney stone removal. COMPARISON: Study interpreted in correlation with CT of 04/10/2019. FINDINGS: There has been interval extraction of a previous of 5.3 mm distal left ureteral stone and resolution of previous left mild hydroureteronephrosis. There is no evidence for intraperitoneal or retroperitoneal hemorrhage. A punctate nonobstructing 1-2 mm stone in a right renal upper pole calyx is unchanged. Parenchymal calcification in the right renal midpole, nonobstructing, unchanged. There is no adverse development. The unopacified urinary bladder unremarkable. There is no evidence for ileus or bowel obstruction. The appendix is normal. The liver, spleen, adrenals and pancreas are negative. The gallbladder is contracted. No bile duct dilatation. IMPRESSION: Successful stone extraction with no hydronephrosis or evidence for hemorrhage. Punctate nonobstructing right renal calculus, stable. No adverse development. No acute appearing abnormality. Dictated by: Dictated on workstation # [id number]
[2019-04-20] MEDS ORDERED: LACTATED RINGERS 1,000 ML IV SCH (17:00)
[2019-04-20 17:08] LABS: CLARITY,URINE CLEAR; GLUCOSE, URINE (UA) NEGATIVE (NEGATIVE); KETONES,URINE NEGATIVE (NEGATIVE); LEUKOCYTE ESTERASE ,URINE 1+ (NEGATIVE); NITRITE,URINE POSITIVE (NEGATIVE); PH,URINE 6 (5-9); PROTEIN,URINE NEGATIVE (NEGATIVE); UROBILINOGEN,URINE 4 MG/DL (NORMAL)
[2019-04-20 17:18] LABS: BACTERIA,URINE NEGATIVE /HPF; BILIRUBIN,URINE 2+ (NEGATIVE); COLOR,URINE AMBER; SQUAMOUS EPITHELIAL CELL,UR RARE /HPF; WBC,URINE 0-2 /HPF
[2019-04-20] MEDS ORDERED: LIDOCAINE 1% INJ 20 ML 20 ML VIAL INJ ONE (17:30)
[2019-04-20] MEDS ORDERED: cefTRIAXone 1,000 MG/2.86 ml vial (IM ONLY) IM SCH (17:30)
[2019-04-20 17:46] VITALS: BP 127/93
--- OUTSIDE RECORDS SUMMARY | 2019-04-20 18:37 | XMS REPORT | Continuity of Care Document ---
Author Organization Unknown Address Unknown Allergies Active Description Code Type Severity Reaction Onset Reported/Identified Relationship to Patient Clinical Status Yes iodine [id number] Drug Allergy Mild N/A 12/24/2009 Yes latex [id number] Drug Allergy Mild N/A 12/24/2009 Medications There [...] 02/22/2019 WILLIS BRYANT MD Ot Z79.899 OTHER CROSSING GUARD (CURRENT) DRUG THERAPY 02/24/2019 WILLIS BRYANT MD [...] 02/24/2019 WILLIS BRYANT MD Ot Z79.899 OTHER CROSSING GUARD (CURRENT) DRUG THERAPY 03/09/2019 WILLIS BRYANT MD [...] PERSONAL HISTORY OF TRAUMATIC BRAIN INJU 04/10/2019 CLARISA DOUGHERTY MD Ot Z90.89 ACQUIRED ABSENCE [...] N20.1 CALCULUS OF URETER 04/17/2019 WILLIS BRYANT MD, Ot N20.0 CALCULUS OF KIDNEY 04/18/2019 WILLIS BRYANT MD, Ot Z01.818 ENCOUNTER FOR OTHER PREPROCEDURAL EXAMIN 04/19/2019 WILLIS BRYANT MD, Ot Z01.818 ENCOUNTER FOR OTHER PREPROCEDURAL EXAMIN Procedures There is no data. Results Test [...] measurement (mass/time) 1877 % 800- 2000 Clinical formula checker review of results See Below NRG Complete [...] Status Pt. Type Provider Facility Loc./Unit Complaint [id number] 04/07/2019 20:08:46 ACT Unknown [id number] 04/19/2019 06:30:00 04/19/2019 10:15:00 DIS Outpatient WILLIS BRYANT MD Via [facility] SDC LEFT DISTAL URETERAL STONE [id number] 04/18/2019 05:36:00 04/18/2019 11:33:00 DIS Outpatient WILLIS BRYANT MD [facility] PREOP LEFT DISTAL URETERAL STONE [id number] 04/10/2019 10:45:00 04/10/2019 23:59:59 CLS Preadmit WILLIS BRYANT MD [facility] RAD FS RT RENAL STONES [id number] 04/10/2019 06:35:00 04/10/2019 09:14:00 DIS Emergency CLARISA DOUGHERTY MD [facility] ER FS URINARY PROBLEMS [id number] 03/06/2019 16:00:00 03/06/2019 23:59:59 CLS Outpatient WILLIS BRYANT MD [facility] LAB STONE ANALYSIS,STONE RISK PROFILE [id number] 02/22/2019 07:50:00 02/22/2019 13:53:00 DIS Outpatient WILLIS BRYANT MD [facility] SDC LEFT URETERAL STONE [id number] 02/21/2019 11:00:00 02/21/2019 15:21:00 DIS Outpatient WILLIS BRYANT MD [facility] PREOP LEFT ESWL [id number] 04/17/2019 13:05:00 ACT Outpatient WILLIS BRYANT MD [facility] RAD RENAL STONES [id number] 03/06/2019 14:59:00 Document Registration
== END 2019-04-20 17:46 | disposition home or self-care (01) ==
LOC: EDUNIT# 15:30 → ER 15:31
DX: R10.13 Epigastric pain (principal); D72.829 Elevated white blood cell count, unspecified; F41.9 Anxiety disorder, unspecified; Z91.041 Radiographic dye allergy status; Z91.048 Other nonmedicinal substance allergy status; Z86.14 Personal history of Methicillin resistant Staphylococcus aureus infection; Z90.89 Acquired absence of other organs; Z98.890 Other specified postprocedural states; Z87.442 Personal history of urinary calculi
CPT/HCPCS: 36415; 74176; 80053; 81000; 83690; 85007; 85027

== ENCOUNTER 2019-04-21 16:37 | Outpatient (RCR) | payer BC | END 2019-07-20 | disposition home or self-care (01) | LOC: LAB 16:37 → EDSTATUS 04-25 19:26 | PROVIDERS: ATTEND Urology | DX: N20.1 Calculus of ureter (principal) | CPT/HCPCS: 36415; 82140; 82340; 82507; 82570; 83735; 83945; 83986; 84105; 84133; 84300; 84392; 84560 ==